=== PATIENT | female | born 2000 | race Two or more races ===

== ENCOUNTER 2020-12-03 23:25 | Inpatient (IN) | payer OTHER ==
[~2020-12-03] VITALS: Ht 167.6 cm; Wt 82.6 kg
[2020-12-04] MEDS ORDERED: PRENATAL TABLE1 EAC1 PO (01:27)
== END 2020-12-06 13:53 | disposition home or self-care (01) | DRG 807 ==
LOC: LDR 23:25 → OB/GYN 23:25
PROVIDERS: ADMIT Obstetrics & Gynecology; ATTEND Obstetrics & Gynecology
PROC: 10E0XZZ Delivery of Products of Conception, External Approach (ICD-10-PCS; principal; 2020-12-04)
PROC: 10907ZC Drainage of Amniotic Fluid, Therapeutic from Products of Conception, Via Natural or Artificial Opening (ICD-10-PCS; 2020-12-04)
PROC: 3E033VJ Introduction of Other Hormone into Peripheral Vein, Percutaneous Approach (ICD-10-PCS; 2020-12-04)
PROC: 4A1HXFZ Monitoring of Products of Conception, Cardiac Rhythm, External Approach (ICD-10-PCS; 2020-12-04)
DX: O48.0 Post-term pregnancy (principal); Z37.0 Single live birth; O70.0 First degree perineal laceration during delivery; Z3A.40 40 weeks gestation of pregnancy; Z20.822 Contact with and (suspected) exposure to COVID-19